=== PATIENT | male | born 1960 | race Two or more races ===

== ENCOUNTER 2020-05-08 09:15 | Outpatient (CLI) | payer OTHER | END 2020-05-08 23:59 | disposition home or self-care (01) | LOC: LAB 09:15 | PROVIDERS: ATTEND Student in an Organized Health Care Education/Training Program | DX: Z01.812 Encounter for preprocedural laboratory examination (principal); Z20.822 Contact with and (suspected) exposure to COVID-19 | CPT/HCPCS: C9803; U0003 ==

== ENCOUNTER 2020-05-12 12:08 | Day surgery (SDC) | payer BC, OTHER ==
[2020-05-12] MEDS ORDERED: ANESTHESIA TRAY IN PYXIS 1 EA TRAY MC ONE (12:47)
[2020-05-12] MEDS ORDERED: FENTANYL PF 100MCG/2ML AMPUL ONE (12:48)
[2020-05-12] MEDS ORDERED: BUPIVACAINE 0.5 % PF 150 MG/30 ML VIAL ONE (13:04)
[2020-05-12] MEDS ORDERED: BETA ACET/BET NA PHOS MDV 6 MG/ML VIAL ONE (13:04)
== END 2020-05-12 14:35 | disposition home or self-care (01) ==
LOC: DS 12:08
PROVIDERS: ATTEND Student in an Organized Health Care Education/Training Program
DX: M75.02 Adhesive capsulitis of left shoulder (principal)
CPT/HCPCS: 23700; 82962; J0702; J2704; J3010; J3490 ×2